=== PATIENT | female | born 1965 | race Caucasian/White ===

== ENCOUNTER 2020-08-31 13:22 | Emergency (ER) | payer OTHER ==
[2020-08-31 16:07] LABS: BASOPHIL 0.5 % (0-2); EOSINOPHIL 1.4 % (0-5); HCT 42.4 % (37.0-47.0); HGB 13.7 g/dl (12.5-16.0); LYMPHOCYTE 35.1 % (15-48); MCH 30.3 pg (25.0-31.0); MCHC 32.3 g/dL (32.0-36.0); MCV 93.8 fL (78.0-100.0); MONOCYTE 7.4 % (0-12); MPV 10.5 fL (6.0-9.5); NEUTROPHIL 55.4 % (41-80); NRBC 0; PLT 206 K/uL (150-400); RBC 4.52 M/uL (4.20-5.40); RDW 12.9 % (11.5-14.0); WBC 8.3 K/uL (4.0-10.5)
[2020-08-31 16:11] LABS: BILIRUBIN NEGATIVE (NEGATIVE); BLOOD NEGATIVE Ery/uL (NEGATIVE); CLARITY CLEAR (CLEAR); COLOR YELLOW (YELLOW); GLUCOSE (U) NORMAL (NORMAL); LEUKOCYTES NEGATIVE Leu/uL (NEGATIVE); NITRITE NEGATIVE (NEGATIVE); PROTEIN NEGATIVE (NEGATIVE); SPECIFIC GRAVITY 1.025 (1.001-1.030); UROBILINOGEN 0.2 mg/dL (0.2-1.0); pH 5.5 (5.0-9.0)
[2020-08-31 16:29] LABS: ALBUMIN 4.2 g/dL (3.4-5.0); BILIRUBIN - TOTAL 0.2 mg/dL (0.2-1.0); BUN/CREAT RATIO (CALC) 19.7 RATIO; CREATININE 0.66 mg/dL (0.51-0.95); GLOBULIN (CALCULATION) 3.3 g/dL; POTASSIUM 3.8 mmol/L (3.5-5.1); TOTAL PROTEIN 7.5 g/dL (6.4-8.2)
[2020-08-31] MEDS ORDERED: NAPROXEN500 MG PO (16:58)
[2020-08-31] MEDS ORDERED: CYCLOBENZAPRINE10 MG PO (16:58)
== END 2020-08-31 18:16 | disposition home or self-care (01) ==
LOC: FER 13:22
PROVIDERS: Nurse Practitioner Family
DX: M54.5 Low back pain (principal); M47.816 Spondylosis without myelopathy or radiculopathy, lumbar region; Z87.442 Personal history of urinary calculi; Z88.5 Allergy status to narcotic agent
CPT/HCPCS: 36415; 72110; 80053; 81003; 82150; 83690; 85025